=== PATIENT | female | born 1985 | race American Indian/Alaskan Native ===

== ENCOUNTER 2021-03-17 09:18 | Emergency (ER) | payer MEDICAID ==
[2021-03-17 09:49] VITALS: BP 128/76
--- NOTE | 2021-03-17 10:44 | Emergency Department Report ---
ED General Adult HPI - General Chief complaint: Neuro Symptoms/Deficit Stated complaint: LT LEG NUMBNESS Time Seen by Provider: 03/17/21 10:39 Source: patient Mode of arrival: Ambulatory Limitations: No Limitations - History of Present Illness Initial comments: 35-year-old female patient presents to emergency department with complaints of right lower back pain radiating to her right lower extremity for 1 week. Patient cannot recall any specific preceding fall, trauma, or injury. She does state that she has been participating in a structured exercise recently in an attempt to lose weight. Patient reports "tingling" in her right leg associated with the pain. Pain is worse with positional changes. She has been taking Advil with limited relief. No history of prior back surgeries. States she is not . Denies fever, chills, neck pain, urinary symptoms, bladder/bowel incontinence, urinary retention, saddle anesthesia, numbness. Denies all other complaints at this time. - Related Data Previous Rx's Medication Instructions Recorded Last Taken Type Lidocaine [Lidoderm] 1 each TP BID #20 adh..patch 03/17/21 Unknown Rx Naproxen 500 mg PO BID #20 tablet 03/17/21 Unknown Rx Allergies Allergy/AdvReac Type Severity Reaction Status Date / Time Sulfa (Sulfonamide Allergy Unknown Verified 03/17/21 09:43 Antibiotics) ED Review of Systems ROS: Stated complaint: LT LEG NUMBNESS Other details as noted in HPI Other: GENERAL: Negative for fever. CARDIOVASCULAR: Negative for chest pain. PULMONARY: Negative for shortness of breath. GASTROINTESTINAL: Negative for abdominal pain. MUSCULOSKELETAL: Positive for back pain and leg pain. NEUROLOGICAL: Negative for headache. INTEGUMENTARY: Negative for rash. ED Past Medical Hx - Past Medical History Previous Medical History?: No - Surgical History Additional Surgical History: thyroid, c-sectionsx3 - Social History Smoking Status: Never Smoker Substance Use Type: Alcohol - Medications Home Medications: Home Medications Medication Instructions Recorded Confirmed Last Taken Type Lidocaine [Lidoderm] 1 each TP BID #20 adh..patch 03/17/21 Unknown Rx Naproxen 500 mg PO BID #20 tablet 03/17/21 Unknown Rx ED Physical Exam - General Limitations: No Limitations - Other Other exam information: General: Awake and alert. No acute distress. Head: Atraumatic, normocephalic. Eyes: EOMI. Pupils are equal and round. Normal sclera and conjunctiva. ENT: Oral mucosa is moist. Normal pharyngeal exam. Neck: Supple. No lymphadenopathy. Pulmonary: No respiratory distress. Clear to auscultation bilaterally. Cardiac: Regular rate and rhythm. Pulses are palpable and equal bilaterally. No lower extremity cyanosis or edema. Skin: Warm and dry. No rashes. Abdomen: Soft, non-tender, non-protuberant. No guarding, rigidity, or rebound. Bowel sounds are normal. No organomegaly or masses noted. Back: Right lumbar paraspinal tenderness without palpable muscle spasm. No midline tenderness. Normal alignment. No CVA tenderness. Patellar deep tendon reflexes intact. Ambulatory without assistance. No saddle anesthesia. Distal neurovascular and motor/sensory function intact. Extremities: Symmetrical. Full range of motion intact. Neurological: Alert and oriented, appropriately interactive, no focal deficits. Psych: Cooperative. Appropriate mood and affect. Speech is evenly metered. Thoughts are logically construed. ED Course Vital Signs 03/17/21 09:45 Temperature 99.3 F Pulse Rate 81 Respiratory 16 Rate Blood Pressure 128/76 O2 Sat by Pulse 100 Oximetry ED Medical Decision Making - Medical Decision Making Differential diagnosis including but not limited to: cauda equina syndrome, disc herniation, sciatica, spinal stenosis, sprain/strain, fracture, contusion, discitis, spinal epidural abscess, muscle spasm Patient presents emergency department with complaints of right paraspinal lumbar back pain. There is no midline tenderness. The patients back pain is not associated with numbness, tingling, or loss of strength. There is no acute urinary incontinence or retention and no bowel incontinence or retention. There is no saddle anesthesia. The patient is afebrile and neurovascularly intact. No clinical evidence for acute nerve compression (such as cauda equine syndrome) or infection (such as epidural abscess). History and exam findings suggestive of musculoskeletal pain, attributable to recent exercise. It has been explained to the patient that advanced imaging such as CT or MRI is not indicated at this time but should be considered if symptoms recur or worsen. Discharged home with appropriate prescriptions and instructions to follow up with primary care provider. Strict return precautions provided. Emphasized the importance of outpatient follow-up and specific signs/symptoms that should warrant immediate return to the emergency department. Patient expressed understanding and was given the opportunity to ask questions, all of which were satisfactorily answered prior to discharge home. Critical care attestation.: If time is entered above; I have spent that time in minutes in the direct care of this critically ill patient, excluding procedure time. ED Disposition Clinical Impression: Lumbar pain with radiation down right leg Disposition: DC-01 TO HOME OR SELFCARE Is pt being admited?: No Does the pt Need Aspirin: No Condition: Stable Instructions: Back Exercises, [id number] Additional Instructions: Take Tylenol every 4 hours as needed for pain. Take Naprosyn twice daily with food as needed for pain. Apply Lidoderm patches to affected area as needed for pain. Apply heat to affected area as needed for pain. Gradually advance physical activity slowly as tolerated. Follow-up with Dr. Davison, primary care provider, within 1 week. Call today to schedule an appointment. Follow-up with [facility]. Call today to schedule an appointment. Return to the emergency department immediately for new or worsening symptoms. Specifically, return to the emergency department immediately for fever, worsening pain, loss of bladder/bowel control, difficulty walking, difficulty using the bathroom, or any other concerns. Prescriptions: Lidocaine [Lidoderm] 1 each TP BID #20 adh..patch Naproxen 500 mg PO BID #20 tablet Referrals: NATHAN DAVISON MD [Staff Physician] - 3-5 Days [facility] [Provider Group] - 3-5 Days Forms: Work/School Release Form(ED) Time of Disposition: 10:44
== END 2021-03-17 18:54 | disposition home or self-care (01) ==
LOC: ED 09:18
DX: M54.5 Low back pain (principal); Z88.2 Allergy status to sulfonamides; Z79.899 Other long term (current) drug therapy; Z98.890 Other specified postprocedural states
CPT/HCPCS: 99281

== ENCOUNTER 2021-07-29 18:25 | Emergency (ER) | payer MEDICAID ==
[2021-07-29 21:02] LABS: Eosinophils # (Auto) 0.4 K/mm3 (0.0-0.4); Eosinophils % (Auto) 9.3 % (0.0-4.3); Hematocrit 32.7 % (30.3-42.9); Hemoglobin 10.3 gm/dl (10.1-14.3); Lymphocytes # (Auto) 1.5 K/mm3 (1.2-5.4); Lymphocytes % (Auto) 35.3 % (13.4-35.0); Mean Corpuscular HGB Conc 32 % (30-34); Mean Corpuscular Volume 71 fl (79-97); Monocytes # (Auto) 0.5 K/mm3 (0.0-0.8); Monocytes % (Auto) 11.3 % (0.0-7.3); Platelet Count 230 K/mm3 (140-440); Red Blood Count 4.61 M/mm3 (3.65-5.03); Red Cell Distribution Width 17.3 % (13.2-15.2)
[2021-07-29 21:21] LABS: Alanine Aminotransferase 12 units/L (7-56); Albumin 4.5 g/dL (3.9-5); Blood Urea Nitrogen 17 mg/dL (7-17); Calcium 9.5 mg/dL (8.4-10.2); Hemolysis Index 2
[2021-07-29 21:34] LABS: BUN/Creatinine Ratio 28
--- NOTE | 2021-07-29 21:43 | XRay Report ---
CHEST 2 VIEWS INDICATION / CLINICAL INFORMATION: syncope x 3. COMPARISON: None available. FINDINGS: SUPPORT DEVICES: None. HEART / MEDIASTINUM: No significant abnormality. LUNGS / PLEURA: No significant pulmonary or pleural abnormality. No pneumothorax. ADDITIONAL FINDINGS: No significant additional findings. IMPRESSION: 1. No acute findings. Signer Name: Alden Sims DO Signed: 07/29/2021 9:39 PM Workstation Name: [id number]
--- NOTE | 2021-07-29 21:48 | Cat Scan Report ---
Lead CT HEAD WITHOUT CONTRAST INDICATION / CLINICAL INFORMATION: persistent dizziness with syncope. TECHNIQUE: All CT scans at this location are performed using CT dose reduction for ALARA by means of automated e xposure control. COMPARISON: None available. FINDINGS: HEMORRHAGE: No evidence of intracranial hemorrhage or extra-axial fluid collection. EXTRA-AXIAL SPACES: Cortical sulci, sylvian fissures and basilar cisterns have an unremarkable appear ance. VENTRICULAR SYSTEM: The third and lateral ventricles are of normal size and configuration. CEREBRAL PARENCHYMA: No areas of abnormal brain parenchymal attenuation are identified. There is no i ndication of recent infarction. MIDLINE SHIFT OR HERNIATION: There is no mass effect. CEREBELLUM / BRAINSTEM: Brainstem and cerebellum have an unremarkable appearance. MIDLINE STRUCTURES:No abnormalities of the pituitary gland or pineal region are identified. INTRACRANIAL VESSELS:No abnormalities are identified on this noncontrast head CT. ORBITS: visualized portions of the orbits have an unremarkable appearance. SOFT TISSUES of HEAD: No significant abnormality. CALVARIUM: Evaluation of bone windows reveals no abnormalities. PARANASAL SINUSES / MASTOID AIR CELLS: Visualized portions of the paranasal sinuses are free from inf lammatory mucosal disease. Mastoid air cells are normally pneumatized. IMPRESSION: 1. Normal head CT without contrast. Signer Name: Pako Mccoy MD Signed: 07/29/2021 9:44 PM Workstation Name: [id number]
--- NOTE | 2021-07-29 23:00 | Emergency Department Report ---
ED Dizziness HPI - General Chief Complaint: Dizziness Stated Complaint: PASSED OUT Source: patient Mode of arrival: Ambulatory Limitations: No Limitations - History of Present Illness Initial Comments: Patient is a 35-year-old -Swedish female with no past medical history who presents to the ED with complaint of acute onset persistent intermittent syncope for the last 3 months, the last time of which was 1 week ago. Patient states that the syncopal episodes usually appear to occur after a prodromal symptom of lightheadedness and dizziness and usually when she is upright. Patient states that the last time this occurred was 1 week ago while she was in an airplane in route to [place] when she had a syncopal episode in the plane. Patient denies loss of consciousness, chest pain or shortness of breath, fever, chills, nausea and vomiting, urinary incontinence or intraoral laceration and bite cordova or drooling, abdominal pain or headache. MD Complaint: dizziness, lightheadedness, other (syncope) -: Sudden, week(s) (1) Timing: sudden onset, intermittent, waxing/waning Description: "room spinning", lightheadedness, off-balance History of Same: Yes History of Trauma: No Severity: moderate Improves With: remaining still Worsens With: movement, position Associated Symptoms: denies other symptoms, malaise, syncope. denies: chest pain, confusion, cough, diaphoresis, fever/chills, loss of appetite, seizure, shortness of breath, weakness, other - Related Data Previous Rx's Medication Instructions Recorded Last Taken Type Lidocaine [Lidoderm] 1 each TP BID #20 adh..patch 03/17/21 Unknown Rx Naproxen 500 mg PO BID #20 tablet 03/17/21 Unknown Rx Meclizine HCl 25 mg PO Q8H PRN #30 tablet 07/30/21 Unknown Rx Allergies Allergy/AdvReac Type Severity Reaction Status Date / Time Sulfa (Sulfonamide Allergy Unknown Verified 03/17/21 09:43 Antibiotics) ED Review of Systems ROS: Stated complaint: PASSED OUT Other details as noted in HPI Constitutional: malaise, weakness. denies: chills, fever Eyes: denies: eye pain, eye discharge, vision change ENT: denies: ear pain, throat pain, congestion Respiratory: denies: cough, shortness of breath, wheezing Cardiovascular: syncope ( 3 episodes). denies: chest pain, palpitations Endocrine: no symptoms reported Gastrointestinal: nausea. denies: abdominal pain, vomiting, diarrhea Genitourinary: denies: urgency, dysuria, discharge Musculoskeletal: denies: back pain, joint swelling, arthralgia Skin: denies: rash, lesions Neurological: denies: headache, weakness, paresthesias Psychiatric: denies: anxiety, depression Hematological/Lymphatic: denies: easy bleeding, easy bruising ED Past Medical Hx - Past Medical History Previous Medical History?: No - Surgical History Past Surgical History?: Yes Additional Surgical History: thyroid, c-sectionsx3 - Social History Smoking Status: Never Smoker Substance Use Type: Alcohol - Medications Home Medications: Home Medications Medication Instructions Recorded Confirmed Last Taken Type Lidocaine [Lidoderm] 1 each TP BID #20 adh..patch 03/17/21 Unknown Rx Naproxen 500 mg PO BID #20 tablet 03/17/21 Unknown Rx Meclizine HCl 25 mg PO Q8H PRN #30 tablet 07/30/21 Unknown Rx ED Physical Exam - General Limitations: No Limitations General appearance: alert, in no apparent distress - Head Head exam: Present: atraumatic, normocephalic, normal inspection - Eye Eye exam: Present: normal appearance, PERRL, EOMI Pupils: Present: normal accommodation - ENT ENT exam: Present: normal exam, normal orophraynx, mucous membranes moist, TM's normal bilaterally, normal external ear exam - Neck Neck exam: Present: normal inspection, full ROM - Respiratory Respiratory exam: Present: normal lung sounds bilaterally. Absent: respiratory distress, wheezes, rales, rhonchi, chest wall tenderness, accessory muscle use, decreased breath sounds - Cardiovascular Cardiovascular Exam: Present: regular rate, normal rhythm, normal heart sounds. Absent: systolic murmur, diastolic murmur, rubs, gallop - GI/Abdominal GI/Abdominal exam: Present: soft, normal bowel sounds. Absent: tenderness, guarding, rebound, hyperactive bowel sounds, hypoactive bowel sounds, organomegaly - Extremities Exam Extremities exam: Present: normal inspection, full ROM, normal capillary refill. Absent: pedal edema, joint swelling - Back Exam Back exam: Present: normal inspection, full ROM. Absent: tenderness, CVA tenderness (R), CVA tenderness (L), muscle spasm, paraspinal tenderness, vertebral tenderness - Neurological Exam Neurological exam: Present: alert, oriented X3, CN II-XII intact, normal gait, reflexes normal - Psychiatric Psychiatric exam: Present: normal affect, normal mood, anxious - Skin Skin exam: Present: warm, dry, intact, normal color. Absent: rash ED Course Vital Signs 07/29/21 07/29/21 19:37 23:57 Temperature 98.6 F Pulse Rate 66 Pulse Rate [ 68 Lying] Pulse Rate [ 68 Sitting] Pulse Rate [ 80 Standing] Respiratory 18 Rate Blood Pressure 112/63 Blood Pressure 117/58 [Lying] Blood Pressure 116/62 [Sitting] Blood Pressure 115/74 [Standing] O2 Sat by Pulse 100 Oximetry ED Medical Decision Making - Lab Data Result diagrams: 07/29/21 20:34 07/29/21 20:34 - EKG Data EKG shows normal: sinus rhythm Rate: normal - EKG Data Interpretation: normal EKG 07/30/21 00:15 The EKG shows normal sinus rhythm with a ventricular rate of [address] or T wave abnormalities. - Radiology Data Radiology results: report reviewed, image reviewed [address] [address] XRay Report Signed Patient: IRAM DAVIS MR#: [id number] : 1985 Acct:[id number] Age/Sex: 35 / F ADM Date: 07/29/21 Loc: ED Attending Dr: Ordering Physician: MARCUS ZAPATA Date of Service: 07/29/21 Procedure(s): XR chest routine 2V Accession Number(s): [id number] cc: MARCUS ZAPATA Fluoro Time In Minutes: CHEST 2 VIEWS INDICATION / CLINICAL INFORMATION: syncope x 3. COMPARISON: None available. FINDINGS: SUPPORT DEVICES: None. HEART / MEDIASTINUM: No significant abnormality. LUNGS / PLEURA: No significant pulmonary or pleural abnormality. No pneumothorax. ADDITIONAL FINDINGS: No significant additional findings. IMPRESSION: 1. No acute findings. Signer Name: Alden Louis DO Signed: 07/29/2021 9:39 PM Workstation Name: [id number] Transcribed By: JOSEY Dictated By: ALDEN LOUIS DO Electronically Authenticated By: ALDEN LOUIS DO Signed Date/Time: 07/29/212138 DD/ 37 TD/TT: [facility] [address] [place] [address] Cat Scan Report Signed Patient: IRAM DAVIS MR#: [id number] : 1985 Acct:[id number] Age/Sex: 35 / F ADM Date: 07/29/21 Loc: ED Attending Dr: Ordering Physician: MARCUS ZAPATA Date of Service: 07/29/21 Procedure(s): CT head/brain wo con Accession Number(s): [id number] cc: MARCUS ZAPATA Lead CT HEAD WITHOUT CONTRAST INDICATION / CLINICAL INFORMATION: persistent dizziness with syncope. TECHNIQUE: All CT scans at this location are performed using CT dose reduction for ALARA by means of automated exposure control. COMPARISON: None available. FINDINGS: HEMORRHAGE: No evidence of intracranial hemorrhage or extra-axial fluid collection. EXTRA-AXIAL SPACES: Cortical sulci, sylvian fissures and basilar cisterns have an unremarkable appearance. VENTRICULAR SYSTEM: The third and lateral ventricles are of normal size and configuration. CEREBRAL PARENCHYMA: No areas of abnormal brain parenchymal attenuation are identified. There is no indication of recent infarction. MIDLINE SHIFT OR HERNIATION: There is no mass effect. CEREBELLUM / BRAINSTEM: Brainstem and cerebellum have an unremarkable appearance. MIDLINE STRUCTURES:No abnormalities of the pituitary gland or pineal region are identified. INTRACRANIAL VESSELS:No abnormalities are identified on this noncontrast head CT. ORBITS: visualized portions of the orbits have an unremarkable appearance. SOFT TISSUES of HEAD: No significant abnormality. CALVARIUM: Evaluation of bone windows reveals no abnormalities. PARANASAL SINUSES / MASTOID AIR CELLS: Visualized portions of the paranasal sinuses are free from inflammatory mucosal disease. Mastoid air cells are normally pneumatized. IMPRESSION: 1. Normal head CT without contrast. Signer Name: Pako Mccoy MD Signed: 07/29/2021 9:44 PM Workstation Name: [id number] Transcribed By: Dictated By: Pako Mccoy MD Electronically Authenticated By: Pako Mccoy MD Signed Date/Time: 07/29/212143 DD/ 41 TD/TT: - Medical Decision Making This is a 35-year-old -Swedish female with no past medical history who presents to the ED with complaint of acute onset persistent intermittent syncope for the last 3 months, the last time of which was 1 week ago. Patient states that the syncopal episodes usually appear to occur after a prodromal symptom of lightheadedness and dizziness and usually when she is upright. Patient states that the last time this occurred was 1 week ago while she was in an airplane in route to [place] when she had a syncopal episode in the plane. In the ED, patient is alert and oriented x3 and is not in any distress. Patient is hemodynamically stable. Chest x-ray showed no acute cardiopulmonary abnormalities or pneumonitis. EKG shows sinus rhythm with a ventricular rate of [address] or T wave abnormalities. The head CT scan without contrast showed no acute intracranial abnormalities or hemorrhage. All lab test results were reviewed and are all nonactionable. On reevaluation, patient felt better, therefore static vital signs are stable. Patient was discharged home on meclizine, and advised to follow-up with her primary care physician in 5 to 7 days for reevaluation. Patient was also referred to the theoretical physicist Dr. Cochran for follow-up. Patient was advised to contact his office to schedule a follow-up appointment. - Differential Diagnosis Dehydration; anemia; ACS; pneumonia; seizure; sinusitis; vertigo Critical care attestation.: If time is entered above; I have spent that time in minutes in the direct care of this critically ill patient, excluding procedure time. ED Disposition Clinical Impression: Syncope with normal neurologic examination, Dizziness and giddiness Disposition: HOME / SELF CARE / HOMELESS Is pt being admited?: No Does the pt Need Aspirin: No Condition: Stable Instructions: Dizziness, [id number], Syncope, [id number], Syncope (ED) Additional Instructions: All lab test results were reviewed and are all nonactionable. EKG shows sinus rhythm with ventricular rate of [address] or T wave normalities. Chest x-ray showed no acute cardiopulmonary abnormalities or pneumonitis. The head CT scan without contrast showed no acute intracranial abnormalities or hemorrhage. Therefore take medications as needed for dizziness, lightheadedness and follow-up with the primary care physician in 5 to 7 days for reevaluation. Consider following up with a [employer] for further evaluation, and to contact Dr. Cochran the theoretical physicist to establish follow-up evaluation. Return to the ED immediately if symptoms get worse. Prescriptions: Meclizine HCl 25 mg PO Q8H PRN #30 tablet PRN Reason: dizziness Referrals: [facility] [Provider Group] - 3-5 Days JEROD COCHRAN MD [Staff Physician] - 3-5 Days Time of Disposition: 00:17 Print Language: CHINESE
[2021-07-29 23:58] VITALS: BP 116/62
--- NOTE | 2021-08-02 14:43 | Electrocardiograph Report ---
[facility] Test Date: 2021-07-30 Test Time: 00:08:56 Pat Name: IRAM DAVIS Department: Room: Gender: F Second Time Worker: MIRELA : 1985 Requested By: RADHA MAYERS Order Number: [id number] Reading MD: Yair Hartman Measurements Intervals [place] Rate: 56 P: -6 FL: 191 QRS: 54 QRSD: 87 T: 28 QT: 419 QTc: 404 Interpretive Statements Sinus rhythm No previous ECG available for comparison Electronically Signed On 08-02-2021 14:43:19 EDT by Yair Hartman
== END 2021-07-30 00:46 | disposition home or self-care (01) ==
LOC: ED 18:25
DX: R55 Syncope and collapse (principal); R42 Dizziness and giddiness; Z88.1 Allergy status to other antibiotic agents; Z98.890 Other specified postprocedural states
CPT/HCPCS: 36415; 70450; 71046; 80053; 84484; 84703; 85025; 93005; 99284

== ENCOUNTER 2022-03-24 10:31 | Emergency (ER) | payer MEDICAID ==
[2022-03-24 11:56] VITALS: BP 145/67
[2022-03-24] MEDS ORDERED: LACTATED RINGERS 1,000 ML IV ONE (14:37)
[2022-03-24] MEDS ORDERED: METOCLOPRAMIDE 10 MG/2 ML INJ IV ONE (14:37)
[2022-03-24] MEDS ORDERED: diphenhydrAMINE 50 MG/ML VIAL IV ONE (14:37)
[2022-03-24] MEDS ORDERED: FAMOTIDINE 20 MG/2 ML INJ IV ONE (15:01)
--- NOTE | 2022-03-24 15:37 | Emergency Department Report ---
ED General Adult HPI - General Chief complaint: Nausea/Vomiting/Diarrhea Stated complaint: DIARRHEA/VOMITING Time Seen by Provider: 03/24/22 14:02 Source: patient Mode of arrival: Ambulatory Limitations: No Limitations - History of Present Illness Initial comments: 36-year-old -Monegasque female patient presents with complaints of nausea vomiting and diarrhea starting today. Patient is 14 weeks currently following with [facility]. She states she had a normal first visit yesterday with her [employer]. She admits to some mild abdominal cramping that is generalized per patient and denies any vaginal bleeding, dysuria, hematuria, urinary frequency, or vaginal discharge. Patient reports she ate at a seafood restaurant yesterday. No hematemesis/coffee-ground emesis, melena/hematochezia, or fever/chills/sweats per patient. Severity scale (0 -10): 0 - Related Data Previous Rx's Medication Instructions Recorded Last Taken Type Lidocaine [Lidoderm] 1 each TP BID #20 adh..patch 03/17/21 Unknown Rx Naproxen 500 mg PO BID #20 tablet 03/17/21 Unknown Rx Meclizine HCl 25 mg PO Q8H PRN #30 tablet 07/30/21 Unknown Rx Promethazine HCl [Promethazine TAB] 12.5 - 25 mg PO [id number] PRN #20 tab 03/24/22 Unknown Rx Allergies Allergy/AdvReac Type Severity Reaction Status Date / Time Sulfa (Sulfonamide Allergy Unknown Verified 03/24/22 11:56 Antibiotics) ED Review of Systems ROS: Stated complaint: DIARRHEA/VOMITING Other details as noted in HPI Constitutional: denies: chills, diaphoresis, fever, malaise, weakness Respiratory: denies: cough, shortness of breath Cardiovascular: denies: chest pain Gastrointestinal: abdominal pain, nausea, vomiting. denies: diarrhea, constipation, hematemesis, melena, hematochezia Genitourinary: denies: urgency, dysuria, frequency, hematuria, discharge, abnormal menses, dyspareunia Musculoskeletal: denies: back pain ED Past Medical Hx - Surgical History Additional Surgical History: thyroid, c-sectionsx3 - Social History Smoking Status: Never Smoker Substance Use Type: Alcohol - Medications Home Medications: Home Medications Medication Instructions Recorded Confirmed Last Taken Type Lidocaine [Lidoderm] 1 each TP BID #20 adh..patch 03/17/21 Unknown Rx Naproxen 500 mg PO BID #20 tablet 03/17/21 Unknown Rx Meclizine HCl 25 mg PO Q8H PRN #30 tablet 07/30/21 Unknown Rx Promethazine HCl [Promethazine TAB] 12.5 - 25 mg PO [id number] PRN #20 tab 03/24/22 Unknown Rx ED Physical Exam - General Limitations: No Limitations ED Course Vital Signs 03/24/22 11:53 Temperature 97.6 F Pulse Rate 104 H Respiratory 16 Rate Blood Pressure 145/67 [Left] O2 Sat by Pulse 100 Oximetry ED Medical Decision Making - Lab Data Result diagrams: 03/24/22 14:33 03/24/22 14:33 - Medical Decision Making 36-year-old -Monegas[place] female patient presents with complaints of nausea vomiting and diarrhea starting today. Patient is 14 weeks currently following with [facility]. She states she had a normal first visit yesterday with her [employer]. She admits to some mild abdominal cramping that is generalized per patient and denies any vaginal bleeding, dysuria, hematuria, urinary frequency, or vaginal discharge. Patient reports she ate at a seafood restaurant yesterday. No hematemesis/coffee-ground emesis, melena/hematochezia, or fever/chills/sweats per patient. No significant abnormalities noted on labs. Patient given 1 L of lactated Ringer's and Reglan and Benadryl. She is now tolerating crackers and juice p.o. without difficulty. She is nontoxic-appearing and stable for discharge home. Heart rate repeated and noted to be 78 bpm. She states her blood pressure was normal at her doctor's visit yesterday. Discussed likely diagnosis of viral gastroenteritis and care plan. Should return precautions discussed in detail with patient who verbalized understanding. Critical care attestation.: If time is entered above; I have spent that time in minutes in the direct care of this critically ill patient, excluding procedure time. ED Disposition Clinical Impression: Vomiting and diarrhea Disposition: HOME / SELF CARE / HOMELESS Is pt being admited?: No Condition: Stable Instructions: Rotavirus Infection, Adult Additional Instructions: If you develop any new or worsening symptoms or your symptoms are not improving, seek immediate emergency treatment Follow-up with your [facility] within 1 week Prescriptions: Promethazine HCl [Promethazine TAB] 12.5 - 25 mg PO [id number] PRN #20 tab PRN Reason: Nausea
[2022-03-24 15:53] LABS: Hemoglobin 12.5 gm/dl (10.1-14.3); Mean Corpuscular HGB Conc 31 % (30-34); Mean Corpuscular Volume 74 fl (79-97); Platelet Count 177 K/mm3 (140-440); Red Blood Count 5.38 M/mm3 (3.65-5.03); Red Cell Distribution Width 15.6 % (13.2-15.2)
[2022-03-24 16:07] LABS: BUN/Creatinine Ratio 20; Blood Urea Nitrogen 10 mg/dL (7-17); Hemolysis Index 4
[2022-03-24 16:44] LABS: Eosinophils % (Manual) 0 % (0.0-4.3); Total Cells Counted 100
[2022-03-24 16:48] LABS: Anisocytosis 2+; Hypochromasia 1+; Ovalocytes Rare; Poikilocytosis Few
[2022-03-24 16:49] LABS: Large Platelets Rare; Platelet Estimate Consistent w Auto; Spherocytes Rare
[2022-03-24 17:29] LABS: Bilirubin,Urine NEG (Negative); Blood,Urine NEG (Negative); Color,Urine Yellow (Yellow); Protein,Urine <15 mg/dL mg/dL (Negative); Urobilinogen,Urine < 2.0 mg/dL (<2.0); WBC,Urine < 1.0 /HPF (0.0-6.0)
[2022-03-24 17:31] LABS: HCG Qualitative,Urine Positive (Negative)
== END 2022-03-24 18:46 | disposition home or self-care (01) ==
LOC: ED 15:47
DX: O21.8 Other vomiting complicating pregnancy (principal); O26.892 Other specified pregnancy related conditions, second trimester; Z3A.14 14 weeks gestation of pregnancy; R19.7 Diarrhea, unspecified; Z98.890 Other specified postprocedural states; Z88.2 Allergy status to sulfonamides
CPT/HCPCS: 36415; 80048; 81001; 81025; 85007; 85025; 96361; 96374; 96375; 99283; J1200; J2765; J3490; J7120

== ENCOUNTER 2022-06-01 11:03 | Emergency (ER) | payer MEDICAID ==
[2022-06-01 15:13] LABS: Bacteria,Urine 1+ /HPF (Negative); Mucus,Urine 1+ /HPF
[2022-06-01 15:21] LABS: Bilirubin,Urine Negative (Negative); Blood,Urine Negative (Negative); Color,Urine Yellow (Yellow); Urobilinogen,Urine < 1.0 mg/dL (<2.0)
--- NOTE | 2022-06-01 17:15 | Event Note ---
ED Screening Note ED Screening Note: FEMALE COMES TO ER CO LEFT HIP PAIN (AREA OF ROUND LIG) G4- SHE INSISTS ITS NOT LIGAMENT INJURY NO FALL OR TRAUMA NO DYSURIA NO VAG BLEEDING NO VAG D/C This initial assessment/diagnostic orders/clinical plan/treatment(s) is/are subject to change based on patients health status, clinical progression and re- assessment by fellow clinical providers in the ED. Further treatment and workup at subsequent clinical providers discretion. Patient/guardian urged not to elope from the ED as their condition may be serious if not clinically assessed and managed. Initial orders include: UA
[2022-06-01] MEDS ORDERED: ACETAMINOPHEN 500 MG TAB PO ONE (20:45)
[2022-06-01] MEDS ORDERED: methylPREDNISolone Sod Succinate 125 MG/2 ML INJ IM ONE (20:45)
--- NOTE | 2022-06-01 22:17 | Emergency Department Report ---
ED Extremity Problem HPI - General Chief complaint: Extremity Injury, Lower Stated complaint: RIGHT JOIN PAIN/ 24 WKS PREG Time Seen by Provider: 06/01/22 12:19 Source: patient Mode of arrival: Ambulatory Limitations: No Limitations - History of Present Illness Initial comments: Patient is a A0 36-year-old -Mongolian female with no past medical history who is approximately 25 weeks gestation presents to the ED with complaint of acute onset persistent nontraumatic right hip joint pain for the last 3 days. Patient states the pain is especially worse with movement or when she lays down. Patient denies fall, traumatic injury, dizziness, syncope, chest pain or shortness of breath, cough, sore throat, dysuria, urinary frequency and urgency, fever, chills, abdominal pain, vaginal bleeding or vaginal discharge, heavy lifting, numbness and tingling or weakness of lower extremities bilaterally. MD Complaint: extremity pain (right hip pain), joint paint (right hip pain), other (Patient is approximately 25 weeks gestation) -: Gradual, days(s) (3) Location: right, lower extremity (Hip pain) History of Same: No -: Yes arthralgia (Right hip pain), No fever, No associated dyspnea, No associated chest pain Radiation: none Severity scale (0 -10): 8 Quality: aching, sharp Consistency: constant Improves with: nothing Worsens with: weight bearing, walking, exertion Associated Symptoms: denies other symptoms, arthralgias (Right hip pain). d enies: chest pain, shortness of breath, fever, myalgias, rash, other - Related Data Previous Rx's Medication Instructions Recorded Last Taken Type Lidocaine [Lidoderm] 1 each TP BID #20 adh..patch 03/17/21 Unknown Rx Naproxen 500 mg PO BID #20 tablet 03/17/21 Unknown Rx Meclizine HCl 25 mg PO Q8H PRN #30 tablet 07/30/21 Unknown Rx Promethazine HCl [Promethazine TAB] 12.5 - 25 mg PO [id number] PRN #20 tab 03/24/22 Unknown Rx Acetaminophen [Tylenol] 500 mg PO Q6HR PRN #40 tablet 06/01/22 Unknown Rx predniSONE [Deltasone] 60 mg PO QDAY #15 tab 06/01/22 Unknown Rx Allergies Allergy/AdvReac Type Severity Reaction Status Date / Time Sulfa (Sulfonamide Allergy Unknown Verified 06/01/22 11:49 Antibiotics) ED Review of Systems ROS: Stated complaint: RIGHT JOIN PAIN/ 24 WKS PREG Other details as noted in HPI Constitutional: denies: chills, fever Eyes: denies: eye pain, eye discharge, vision change ENT: denies: ear pain, throat pain Respiratory: denies: cough, shortness of breath, wheezing Cardiovascular: denies: chest pain, palpitations Endocrine: no symptoms reported Gastrointestinal: denies: abdominal pain, nausea, diarrhea Genitourinary: denies: urgency, dysuria, discharge Musculoskeletal: arthralgia (Right hip pain), myalgia. denies: back pain, joint swelling Skin: denies: rash, lesions Neurological: denies: headache, weakness, paresthesias Psychiatric: denies: anxiety, depression Hematological/Lymphatic: denies: easy bleeding, easy bruising ED Past Medical Hx - Surgical History Additional Surgical History: thyroid, c-sectionsx3 - Social History Smoking Status: Never Smoker Substance Use Type: Alcohol - Medications Home Medications: Home Medications Medication Instructions Recorded Confirmed Last Taken Type Lidocaine [Lidoderm] 1 each TP BID #20 adh..patch 03/17/21 Unknown Rx Naproxen 500 mg PO BID #20 tablet 03/17/21 Unknown Rx Meclizine HCl 25 mg PO Q8H PRN #30 tablet 07/30/21 Unknown Rx Promethazine HCl [Promethazine TAB] 12.5 - 25 mg PO [id number] PRN #20 tab 03/24/22 Unknown Rx Acetaminophen [Tylenol] 500 mg PO Q6HR PRN #40 tablet 06/01/22 Unknown Rx predniSONE [Deltasone] 60 mg PO QDAY #15 tab 06/01/22 Unknown Rx ED Physical Exam - General Limitations: No Limitations General appearance: alert, in no apparent distress - Head Head exam: Present: atraumatic, normocephalic, normal inspection - Eye Eye exam: Present: normal appearance, PERRL, EOMI Pupils: Present: normal accommodation - ENT ENT exam: Present: normal exam, normal orophraynx, mucous membranes moist, TM's normal bilaterally, normal external ear exam - Neck Neck exam: Present: normal inspection, full ROM. Absent: tenderness - Respiratory Respiratory exam: Present: normal lung sounds bilaterally. Absent: respiratory distress, wheezes, rales, rhonchi, chest wall tenderness, accessory muscle use, decreased breath sounds, prolonged expiratory - Cardiovascular Cardiovascular Exam: Present: regular rate, normal rhythm, normal heart sounds. Absent: systolic murmur, diastolic murmur, rubs, gallop - GI/Abdominal GI/Abdominal exam: Present: soft, normal bowel sounds. Absent: tenderness, guarding, rebound, hyperactive bowel sounds, hypoactive bowel sounds, organomegaly, mass - Extremities Exam Extremities exam: Present: normal inspection, full ROM, tenderness (Palpable right hip tenderness), normal capillary refill. Absent: pedal edema, joint swelling, calf tenderness - Back Exam Back exam: Present: normal inspection, full ROM. Absent: tenderness, CVA tenderness (R), CVA tenderness (L), muscle spasm, paraspinal tenderness, vertebral tenderness - Neurological Exam Neurological exam: Present: alert, oriented X3, CN II-XII intact, normal gait, reflexes normal - Psychiatric Psychiatric exam: Present: normal affect, normal mood - Skin Skin exam: Present: warm, dry, intact, normal color. Absent: rash ED Course Vital Signs 06/01/22 11:47 Temperature 98.4 F Pulse Rate 83 Respiratory 18 Rate Blood Pressure 115/71 [Left] O2 Sat by Pulse 100 Oximetry ED Medical Decision Making - Medical Decision Making This is a A0 36-year-old -Mongolian female with no past medical history who is approximately 25 weeks gestation presents to the ED with complaint of acute onset persistent nontraumatic right hip joint pain for the last 3 days. Patient states the pain is especially worse with movement or when she lays down. In the ED, patient is alert and oriented x3 and is not in any distress. Patient was treated for pain in the ED. Based on the history and physical exam findings, the patient's symptoms are likely due to right hip tendinitis or bursitis. Patient was discharged home on pain medications advised to follow-up with her [facility] physician in 7 to 10 days for reevaluation or return to the ED immediately if symptoms get worse. - Differential Diagnosis hip bursitis; hip tendonitis; muscle strain Critical care attestation.: If time is entered above; I have spent that time in minutes in the direct care of this critically ill patient, excluding procedure time. ED Disposition Clinical Impression: Right hip tendinitis Bursitis of right hip Qualifiers: Hip bursitis location: unspecified Qualified Code(s): M70.71 - Other bursitis of hip, right hip Strain of muscle of right hip Qualifiers: Encounter type: initial encounter Qualified Code(s): S76.011A - Strain of muscle, fascia and tendon of right hip, initial encounter Disposition: HOME / SELF CARE / HOMELESS Is pt being admited?: No Does the pt Need Aspirin: No Condition: Stable Instructions: Hip Bursitis, [id number], Muscle Strain, [id number], Bursitis, [id number], Tendinitis, [id number] Additional Instructions: Based on your history and physical exam findings, your symptoms are likely musculoskeletal muscle strain or inflammation of your right hip joint. Therefore take medication with food, drink plenty of fluids, follow-up with your [employer] physician or primary care physician in 7 to 10 days for reevaluation. Return to the ED immediately if symptoms get worse. Prescriptions: Acetaminophen [Tylenol] 500 mg PO Q6HR PRN #40 tablet PRN Reason: Pain , Severe (7-10) predniSONE [Deltasone] 60 mg PO QDAY #15 tab Referrals: CHAVEZ MERCADO MD [Primary Care Provider] - 3-5 Days Time of Disposition: 22:23 Print Language: SLOVAK
[2022-06-01 22:43] VITALS: BP 119/75
== END 2022-06-01 22:44 | disposition home or self-care (01) ==
LOC: ED 11:03
DX: S76.011A Strain of muscle, fascia and tendon of right hip, initial encounter (principal); M70.71 Other bursitis of hip, right hip; M76.11 Psoas tendinitis, right hip; Z88.2 Allergy status to sulfonamides; F10.20 Alcohol dependence, uncomplicated
CPT/HCPCS: 81001; 96372; 99283; J2930